=== PATIENT | female | born 1935 | race Caucasian/White ===

== ENCOUNTER → 2020-03-01 | Outpatient (CLI) | payer MEDICARE, OTHER ==
[~2020-03-01] MED LIST: ASPIR-LOW81 MG PO; CORGARD20 MG PO; FEOSOL325 MG PO; GLUCOTROL5 MG PO; IBUPROFEN600 MG PO; LASIX20 MG PO; LEVAQUIN500 MG PO; LIPITOR TAB 2020 MG PO; NEURONTIN400 MG PO; NORVASC 5 MG TAB5 MG PO; OSTEO BI-FLEX1 EAC1 PO; PEPCID40 MG PO; PREDNISONE20 MG PO; PROTONIX40 MG PO; SYNTHROID50 MCG PO; TESSALON PERLE100 MG PO; ZITHROMAX250 MG PO
== END ==
LOC: KOH-I 11:51
DX: M51.16 Intervertebral disc disorders with radiculopathy, lumbar region (principal); M48.061 Spinal stenosis, lumbar region without neurogenic claudication; M41.9 Scoliosis, unspecified
CPT/HCPCS: 72100

== ENCOUNTER → 2020-05-09 | Outpatient (CLI) | payer MEDICARE, OTHER | LOC: KOH-I 10:34 | DX: M51.16 Intervertebral disc disorders with radiculopathy, lumbar region (principal); M47.26 Other spondylosis with radiculopathy, lumbar region; M48.061 Spinal stenosis, lumbar region without neurogenic claudication; M47.817 Spondylosis without myelopathy or radiculopathy, lumbosacral region; M51.27 Other intervertebral disc displacement, lumbosacral region; M48.07 Spinal stenosis, lumbosacral region | CPT/HCPCS: 72148 ==